=== PATIENT | male | born 1975 | race Caucasian/White ===

== ENCOUNTER 2020-07-11 11:13 | Emergency (ER) | payer OTHER ==
[~2020-07-11] VITALS: Ht 175.3 cm; Wt 93.9 kg
[~2020-07-11 11:13] MED LIST: CIPRO100 MG; CIPRO500 MG PO; DIOVAN160 M1; DIOVAN40 MG; FLAGYL500MG PO; NORFLEX100MG PO; PROTONIX40 MG PO; VOLTAREN-XR100 MG PO
[2020-07-11] MEDS ORDERED: KETO10TA2 PO (14:48)
[2020-07-11] MEDS ORDERED: NORFLEX100MG PO (14:48)
== END 2020-07-11 14:52 | disposition home or self-care (01) ==
LOC: ER 11:13
DX: R07.89 Other chest pain (principal); Z03.818 Encounter for observation for suspected exposure to other biological agents ruled out